=== PATIENT | female | born 1980 | race Caucasian/White ===

== ENCOUNTER 2022-05-12 11:50 | Outpatient (CLI) | payer BC | END 2022-05-12 11:51 | disposition home or self-care (01) | LOC: CSHMAMMO 11:50 | PROVIDERS: ATTEND Obstetrics & Gynecology | DX: Z12.31 Encounter for screening mammogram for malignant neoplasm of breast (principal); Z80.3 Family history of malignant neoplasm of breast | CPT/HCPCS: 77063; 77067 ==

== ENCOUNTER 2022-07-21 10:44 | Day surgery (SDC) | payer BC ==
[2022-07-17 09:31] LABS: Hemoglobin 13.7 g/dL (12.0-15.5); Mean Corpuscular HGB CONC 34.3 g/dL (32.0-36.0); Mean Corpuscular Hemoglobin 33.6 pg (27.0-33.0); Mean Platelet Volume 10.3 fl (7.4-10.4); Platelet Count 272 10x3/uL (150-450); RBC Distribution Width 11.9 % (11.5-14.5); Red Blood Cell (RBC) Count 4.08 10x6/uL (3.90-5.03); White Blood Cell (WBC) Count 3.9 10x3/uL (3.5-10.5)
[2022-07-17 10:00] LABS: BHCG - Serum Negative (NEGATIVE); Pregs Control Background? CLEAR/WHITE (CLR/WHITE); Pregs Control Bar Appear? YES (CONTROL BAR)
[2022-07-20 09:58] VITALS: BMI 31.4
[2022-07-21] MEDS ORDERED: Gabapentin 300 MG CAP ONE (12:05)
[2022-07-21] MEDS ORDERED: CeleCOXIB 100 MG CAP ONE (12:05)
[2022-07-21] MEDS ORDERED: Famotidine/PF 20 mg/2ml Vial ONE (12:06)
[2022-07-21] MEDS ORDERED: Bupivacaine PF 0.5% 30 ML VIAL ONE (14:42)
[2022-07-21] MEDS ORDERED: EPINEPHrine 1 MG/ML AMP ONE (14:42)
[2022-07-21] MEDS ORDERED: Midazolam HCl 2 mg/2 ml Vial ONE (16:13)
[2022-07-21] MEDS ORDERED: CEFAZOLIN 2 GM VIAL ONE (16:15)
[2022-07-21] MEDS ORDERED: Dexamethasone 4 mg/ml Vial ONE (16:41)
[2022-07-21] MEDS ORDERED: Ondansetron PF 4 MG/2 ML Vial ONE (17:36)
[2022-07-21] MEDS ORDERED: Ketorolac Tromethamine 30 MG/ML VIAL ONE (17:37)
[2022-07-21] MEDS ORDERED: HYDROcodone/Acetaminophen 5/325 mg Tablet ONE (18:45)
== END 2022-07-21 19:35 | disposition home or self-care (01) ==
LOC: CSHSDC 10:44
PROVIDERS: ATTEND Student in an Organized Health Care Education/Training Program
PROC: 0UT94ZZ Resection of Uterus, Percutaneous Endoscopic Approach (ICD-10-PCS; principal; 2022-07-21)
PROC: 0UT74ZZ Resection of Bilateral Fallopian Tubes, Percutaneous Endoscopic Approach (ICD-10-PCS; principal; 2022-07-21)
DX: N80.03 Adenomyosis of the uterus (principal); N87.9 Dysplasia of cervix uteri, unspecified; N83.8 Other noninflammatory disorders of ovary, fallopian tube and broad ligament; N93.9 Abnormal uterine and vaginal bleeding, unspecified; Z79.899 Other long term (current) drug therapy; F41.9 Anxiety disorder, unspecified; K21.9 Gastro-esophageal reflux disease without esophagitis; Z87.891 Personal history of nicotine dependence
CPT/HCPCS: 36415; 84703; 85027; 86850; 86900; 86901; 88307; J0171; J1100; J1885; J2250; J2405; S0020; S0028

== ENCOUNTER 2023-05-18 14:08 | Outpatient (CLI) | payer BC | END 2023-05-18 14:09 | disposition home or self-care (01) | LOC: CSHULT 14:08 | PROVIDERS: ATTEND Obstetrics & Gynecology | DX: N63.24 Unspecified lump in the left breast, lower inner quadrant (principal); N60.02 Solitary cyst of left breast ==

== ENCOUNTER 2024-05-18 09:01 | Outpatient (CLI) | payer BC | END 2024-05-18 09:02 | disposition home or self-care (01) | LOC: CSHMAMMO 09:01 | PROVIDERS: ATTEND Obstetrics & Gynecology | DX: Z12.31 Encounter for screening mammogram for malignant neoplasm of breast (principal); Z80.3 Family history of malignant neoplasm of breast | CPT/HCPCS: 77063; 77067 ==